=== PATIENT | male | born 1965 | race African-American/Black ===

== ENCOUNTER 2017-05-30 17:18 | Inpatient (IN) ==
[2017-05-30] MEDS ORDERED: KETOROLAC 30 MG/1 ML VIAL IM STA (18:11)
[2017-05-30] MEDS ORDERED: MORPHINE 2 MG/1 ML SYRINGE IV STA ×3 (18:11→20:08)
[2017-05-30] MEDS ORDERED: ONDANSETRON 4 MG/2 ML VIAL IV STA (18:11)
[2017-05-30] MEDS ORDERED: DIPH/TET/ACEL PERT BOOSTER VACCINE 0.5 ML VIAL IM ONE ×2 (18:11→18:23)
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
[2017-05-30] MEDS ORDERED: MORPHINE 2 MG/1 ML SYRINGE ONE (18:23)
[2017-05-30] MEDS ORDERED: ONDANSETRON 4 MG/2 ML VIAL ONE (18:23)
[2017-05-30] MEDS ORDERED: KETOROLAC 30 MG/1 ML VIAL ONE (18:23)
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
[2017-05-30 19:09] LABS: Basophils % 0.2 % (0.0-0.8); Hematocrit 37.7 VOL% (42.0-52.0); Immature Granulocytes % 0.4 %; Immature Granulocytes Absolute 0.02 #; Lymphocytes # 1.3 10*3/uL (1.4-4.0); Lymphocytes % 28.5 % (21.2-54.2); Mean Corpuscular HGB Conc 34.5 GM/DL (32-36); Mean Corpuscular Hemoglobin 31 PG (27-34); Mean Corpuscular Volume 88.5 FL (87-102); Mean Platelet Volume 9.5 FL (9.6-12.0); Monocytes # 0.4 10*3/uL (0.11-0.8); Monocytes % 8.6 % (1.7-12.7); Neutrophils # 2.9 10*3/uL (1.4-7.4); Neutrophils % 62.3 % (38.7-73.9); Platelet Count 167 T/CUMM (130-400); Red Blood Count 4.26 MC/CUMM (3.8-5.5); Red Cell Distribution Width 13.5 % (9.3-17.3); White Blood Count 4.7 T/CUMM (4-12)
[2017-05-30 19:20] LABS: PT Patient Result 10.1 SECS; Partial Thromboplastin Time 27.3 SECS (0-40)
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
[2017-05-30 19:45] LABS: Alanine Aminotransferase 215 U/L (16-61); Albumin 4.1 G/DL (3.4-5.0); Alkaline Phosphatase 63 U/L (45-117); Amylase 54 U/L (25-115); Aspartate Amino Transferase 180 U/L (0-37); Blood Urea Nitrogen 18 MG/DL (7-18); Calcium 8.8 MG/DL (8.5-10.1); Glucose 100 MG/DL (74-106); Potassium 3.5 MMOL/L (3.5-5.1); Sodium 136 MMOL/L (136-145); Total Protein 7.4 G/DL (6.4-8.3)
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
[2017-05-30] MEDS ORDERED: ONDANSETRON 4 MG/2 ML VIAL IV PRN (19:57)
[2017-05-30] MEDS ORDERED: ALBUTEROL/IPRATROPIUM 3 ML NEB RESP TX PRN (19:57)
[2017-05-30] MEDS ORDERED: ACETAMINOPHEN 325 MG TABLET PO PRN (19:57)
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
[2017-05-30 20:21] LABS: Lactic Acid 0.8 MMOL/L (0.4-2.0)
[2017-05-30] MEDS: DEXTROSE 5% NACL 0.45% 1,000 ML IV SCH (20:55)
[2017-05-31] MEDS: MORPHINE 2 MG/1 ML SYRINGE IV PRN ×4 (00:36→18:11)
[2017-05-31] MEDS: DEXTROSE 5% NACL 0.45% 1,000 ML IV SCH ×2 (04:06→13:11)
--- NOTE | 2017-05-31 08:57 | XRay Report ---
Exam: XR chest 2V Indication: Shortness of breath Comparison study: None Findings: Cardiac silhouette is borderline enlarged. Multiple right paratracheal and right hilar calcified lymph nodes are noted in most compatible with sequela of prior granulomatous disease. Minimal patchy perihilar and basilar interstitial and airspace opacities are noted, which are nonspecific but may represent underlying infectious/inflammatory infiltrates versus atelectasis/scarring. No significant pleural effusion is identified. There is no significant pneumothorax. Multiple right-sided rib fractures are better detailed on prior CT images. Vertebral body segmentation anomaly at the lower thoracic spine causing accentuated/focal kyphosis is unchanged and better to detailed on the prior CT. Impression: Probable basilar atelectasis versus developing infectious/inflammatory infiltrates. Multiple right-sided rib fractures better detailed on the prior CT images. No pneumothorax. PROCEDURE INTERPRETED AT [facility] DEPARTMENT OF RADIOLOGY Final Report Signed by: Harrison Boyd
[2017-05-31 09:26] LABS: Basophils % 0.5 % (0.0-0.8); Hematocrit 36.7 VOL% (42.0-52.0); Hemoglobin 12.5 GM/DL (14.0-18.0); Immature Granulocytes % 0.3 %; Immature Granulocytes Absolute 0.01 #; Lymphocytes # 1.1 10*3/uL (1.4-4.0); Lymphocytes % 29.8 % (21.2-54.2); Mean Corpuscular HGB Conc 34.1 GM/DL (32-36); Mean Corpuscular Hemoglobin 30 PG (27-34); Mean Corpuscular Volume 89.1 FL (87-102); Mean Platelet Volume 9.4 FL (9.6-12.0); Monocytes # 0.3 10*3/uL (0.11-0.8); Monocytes % 8.7 % (1.7-12.7); Neutrophils # 2.2 10*3/uL (1.4-7.4); Neutrophils % 60.7 % (38.7-73.9); Platelet Count 146 T/CUMM (130-400); Red Blood Count 4.12 MC/CUMM (3.8-5.5); Red Cell Distribution Width 13.5 % (9.3-17.3); White Blood Count 3.7 T/CUMM (4-12)
[2017-05-31] MEDS ORDERED: ALBUTEROL/IPRATROPIUM 3 ML NEB RESP TX ONE (09:45)
[2017-05-31] MEDS: hydroCHLOROthiazide 25 MG TABLET PO SCH (09:52)
[2017-05-31] MEDS: PANTOPRAZOLE 40 MG TABLET PO SCH (09:53)
[2017-05-31 09:55] LABS: Band Neutrophils 1 % (0-10); Eosinophils 5 % (0-10); Giant Platelets Few; Hypochromasia 1+; Lymphocytes 29 % (20-55); Platelet Estimate Normal; Segmented Neutrophils 58 % (50-85); Total Cells Counted 100
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
[2017-05-31 10:03] LABS: Albumin 3.5 G/DL (3.4-5.0); Bilirubin,Total 0.7 MG/DL (0.2-1.0); Calcium 8.9 MG/DL (8.5-10.1); Osmolality,Calculated 270.1 MOS/KG (273-304); Potassium 3.7 MMOL/L (3.5-5.1); Total Protein 6.8 G/DL (6.4-8.3)
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
[2017-06-01] MEDS: DEXTROSE 5% NACL 0.45% 1,000 ML IV SCH ×2 (07:33→07:34)
[2017-06-01] MEDS: hydroCHLOROthiazide 25 MG TABLET PO SCH (09:00)
[2017-06-01] MEDS: PANTOPRAZOLE 40 MG TABLET PO SCH (09:00)
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
[2017-06-01 11:35] VITALS: BP 155/86
== END 2017-06-01 13:42 | disposition home or self-care (01) | DRG 564 ==
LOC: N.ED 17:18 → N.EDINP 19:57 → N.3E 20:37
PROVIDERS: ADMIT Surgery; ATTEND Surgery